=== PATIENT | male | born 1980 | race Caucasian/White ===

== ENCOUNTER 2018-09-05 14:32 | Emergency (ER) | payer OTHER ==
[2018-09-05] MEDS ORDERED: CEFAZOLIN SODIUM 1 GM PDS 2 GM in SODIUM CHLORIDE 0.9% 100 ML 100 ML IV ONE (15:45)
[2018-09-05 16:10] LABS: BASOPHILS % (AUTO) 1 % (0-3); EOSINOPHILS % (AUTO) 1 % (0-9); HEMATOCRIT 46 % (39-53); HEMOGLOBIN 15.7 gm/dl (13.5-17.7); MEAN CORPUSCULAR HEMOGLOBIN 27.9 pg (27.0-32.0); MEAN CORPUSCULAR HGB CONC 33.8 gm/dl (32.0-36.0); MEAN CORPUSCULAR VOLUME 83 fL (80-100); MONOCYTES % (AUTO) 6.7 % (0-12); NEUTROPHILS % (AUTO) 59.8 % (37-80)
[2018-09-05] MEDS ORDERED: CEFAZOLIN SODIUM 1 GM PDS ONE ×2 (16:19→16:25)
[2018-09-05 16:26] LABS: CALCIUM 8.7 mg/dl (8.5-10.1); CARBON DIOXIDE 28.5 mEq/L (21-32); CREATININE 0.96 mg/dl (0.80-1.30); CRP INFLAMMATORY 4.49 mg/dl (0.00-0.33); POTASSIUM 3.9 mMol/L (3.5-5.1)
[2018-09-05] MEDS ORDERED: TDAP VACCINE 0.5 ML SUS IM ONE ×2 (16:43→17:05)
[2018-09-05 18:34] VITALS: BP 143/98; PULSE 98; RESP 18; TEMP 97.9; O2SAT 98
== END 2018-09-05 17:30 | disposition home or self-care (01) | DRG 558 ==
LOC: ED 14:32
DX: M70.41 Prepatellar bursitis, right knee (principal); M25.561 Pain in right knee; R60.0 Localized edema
CPT/HCPCS: 73562; 80048; 85025; 90471; 90715; 96365; 99282; 99283; J0690

== ENCOUNTER 2018-09-06 14:21 | Outpatient (CLI) | payer OTHER ==
[2018-09-05 18:34] VITALS: O2SAT 98
== END 2018-09-06 14:22 | disposition home or self-care (01) | DRG 556 ==
LOC: CONVCARE 14:21
PROVIDERS: ATTEND Orthopaedic Surgery
DX: M25.561 Pain in right knee (principal); M70.41 Prepatellar bursitis, right knee
CPT/HCPCS: 87070; 87077; 87186; 87205